=== PATIENT | female | born 2000 | race Asian ===

== ENCOUNTER → 2023-01-24 12:45 | Outpatient (CLI) | payer OTHER, SELFPAY | PROVIDERS: PCP Nurse Practitioner Family; Visit Provider Nurse Practitioner Family | DX: N39.0 Urinary tract infection, site not specified (principal) | CPT/HCPCS: 87086 ==

== ENCOUNTER 2023-01-24 12:56 | Emergency (ER) | payer OTHER, SELFPAY ==
[2023-01-24 13:00] VITALS: BP 111/65; PULSE 115; RESP 18; TEMP 36.7; O2SAT 97; BMI 21.4
[2023-01-24] MEDS: ONDANSETRON 4 MG/2 ML INJ IV (13:23)
[2023-01-24] MEDS: SODIUM CHLORIDE 0.9% 1,000 ML 1000 ML IV ×3 (13:23→16:59)
--- NOTE | 2023-01-24 14:29 | ED_ITS ---
HPI - Nausea/Vomiting/Diarrhea General Chief complaint: Nausea/Vomiting/Diarrhea Stated complaint: food poisoning Time Seen by Provider: 01/24/23 14:20 Source: patient Mode of arrival: Ambulatory History of Present Illness HPI Narrative: Patient here for nausea and vomiting and epigastric discomfort. Patient states symptoms started around 2 or 3:00 a.m. in the morning today. Patient made some [employer] soup as she usually has in the past, never got sick from it before. No known sick contacts no one else ate the soup. Denies . No urinary complaints. No chest pain or back pain. Patient feeling much better after Zofran and normal saline here. Related Data Home Medications Medication Instructions Recorded Confirmed lamotrigine 200 mg tablet 200 mg PO DAILY 01/24/23 01/24/23 Previous Rx's Medication Instructions Recorded ondansetron 4 mg disintegrating 4 mg PO Q8H PRN nausea and 01/24/23 tablet vomiting #10 tabs Allergies Allergy/AdvReac Type Severity Reaction Status Date / Time No Known Drug Allergies Allergy Unverified 01/24/23 12:27 Review of Systems Review of Systems Narrative: GENERAL: negative chills, fatigue, malaise, fever, sweats. HEENT: negative sinus pain, ear pain, sore throat RESPIRATORY: negative dyspnea, cough CARDIOVASCULAR: negative chest pain, palpitations GASTROINTESTINAL: Positive nausea, vomiting, abdominal pain, negative diarrhea : negative dysuria, frequency, hematuria MUSCULOSKELETAL: negative muscle or bony pain SKIN: negative rash, skin lesions NEUROLOGIC: negative weakness, numbness ROS Unobtainable: All systems reviewed & are unremarkable except as noted in HPI and below Patient History Social History Smoking Status: Former smoker Smoking Status: Former smoker alcohol intake frequency: holidays/special occasions only Substance Use Type: marijuana Exam Narrative Exam Narrative: GENERAL: in no distress, not toxic not dyspneic HEAD: Normocephalic. EYES: Pupils equal round ENT: Mucous membranes moist. NECK: Trachea midline. CARDIOVASCULAR: Regular rate and rhythm without murmurs RESPIRATORY: Clear to auscultation. Breath sounds equal bilaterally. No wheezes, rales, or rhonchi. GASTROINTESTINAL: Abdomen soft, non-tender abdomen soft flat nontender no McBurney point tenderness. Negative Griffith sign. No right upper quadrant tenderness. Mild epigastric tenderness EXTREMITIES: No gross deformities. BACK: No flank tenderness. NEURO: AOx4. SKIN: Warm and dry PSYCH: Not anxious, is cooperative Initial Vital Signs Initial Vital Signs: Vital Signs Temperature 98.1 F 01/24/23 13:00 Pulse Rate 115 H 01/24/23 13:00 Respiratory Rate 18 01/24/23 13:00 Blood Pressure 111/65 01/24/23 13:00 Pulse Oximetry 97 01/24/23 13:00 Oxygen Delivery Method Room Air 01/24/23 13:00 Course Orders Ordered: Discontinued Medications Sodium Chloride (Normal Saline 0.9%) 1,000 mls @ 1,000 mls/hr IV BOLUS ONE Stop: 01/24/23 14:18 Last Infusion: 01/24/23 14:10 Dose: 0 mls/hr Documented By: Admin: 01/24/23 13:23 Dose: 1,000 mls/hr Documented By: LY Sodium Chloride (Normal Saline 0.9%) 1,000 mls @ 1,000 mls/hr IV BOLUS ONE Stop: 01/24/23 15:45 Last Infusion: 01/24/23 15:29 Dose: 0 mls/hr Documented By: Admin: 01/24/23 14:52 Dose: 1,000 mls/hr Documented By: KIRILL Sodium Chloride (Normal Saline 0.9%) 1,000 mls @ 1,000 mls/hr IV BOLUS ONE Stop: 01/24/23 17:19 Last Infusion: 01/24/23 18:26 Dose: 0 mls/hr Documented By: Admin: 01/24/23 16:59 Dose: 1,000 mls/hr Documented By: KIRILL Ketorolac Tromethamine (Ketorolac 30 Mg/Ml Vial) 15 mg IV NOW ONE Stop: 01/24/23 17:26 Last Admin: 01/24/23 17:28 Dose: 15 mg Documented By: LY Ondansetron HCl (Ondansetron 4 Mg/2 Ml Inj) 4 mg IV NOW ONE Stop: 01/24/23 13:20 Last Admin: 01/24/23 13:23 Dose: 4 mg Documented By: LY Vital Signs Vital signs: Vital Signs - 8 hr 01/24/23 13:00 01/24/23 15:29 01/24/23 14:30 Temperature 98.1 F Pulse Rate 115 H 110 H 110 H Respiratory Rate 18 14 16 Blood Pressure 111/65 103/59 L 105/60 Pulse Oximetry 97 100 99 Oxygen Delivery Method Room Air Room Air Room Air 01/24/23 15:56 01/24/23 16:57 Temperature Pulse Rate 111 H 117 H Respiratory Rate Blood Pressure 103/58 L 102/52 L Pulse Oximetry 99 99 Oxygen Delivery Method Room Air Room Air MDM - Nausea/Vomiting/Diarrhea Lab Data 01/24/23 13:15 01/24/23 13:15 Labs: Lab Results 01/24/23 01/24/23 01/24/23 Range/Units 13:15 13:15 14:25 WBC 5.9 (4.5-11.0) X10^3/uL RBC 4.49 (4.0-5.2) X10^6/uL Hgb 14.7 (12.0-16.0) g/dL Hct 42.0 (36-46) % MCV 93.4 (80-100) fL MCH 32.6 (26-34) PG MCHC 34.9 (30-36) % RDW 13.3 (11.6-14.8) % Plt Count 170 (150-400) X10^3/uL Neut % (Auto) 92.1 H (50-75) % Lymph % (Auto) 2.1 L (25-40) % [place]berry % (Auto) 4.3 (3-14) % Eos % (Auto) 1.1 L (2-4) % Baso % (Auto) 0.4 (0-2) % Neut # (Auto) 5400 (3109-0891) /uL Lymph # (Auto) 100 L (6287-4612) /uL [place]berry # (Auto) 300 (0-900) /uL Eos # (Auto) 100 (0-450) /uL Baso # (Auto) 0 (0-100) /uL Sodium 138 (137-145) mmol/L Potassium 3.8 (3.4-5.1) mmol/L Chloride 105 (98-107) mmol/L Carbon Dioxide 22 (22-32) mmol/L BUN 12 (7-17) mg/dL Creatinine 0.65 (0.52-1.04) mg/dL Estimated GFR > 60 (>60) mL/min BUN/Creatinine Ratio 18.5 (6-22) Glucose 126 H (70-100) mg/dL Calcium 9.3 (8.4-10.2) mg/dL Total Bilirubin 0.5 (0.2-1.3) mg/dL AST 26 (14-36) IU/L ALT 22 (<35) IU/L Alkaline Phosphatase 62 (38-126) U/L Total Protein 8.3 H (6.3-8.2) g/dL Albumin 4.8 (3.5-5.0) g/dL Globulin 3.5 (1.7-4.1) g/dL Albumin/Globulin Ratio 1.4 (1.0-2.8) Lipase 62 (23-300) U/L Urine RBC 1-5/hpf (0-5/HPF) Urine WBC 0-1/hpf (0-5/HPF) Ur Squamous Epith Cells 1-5 /hpf (0-5/HPF) Urine Bacteria Moderate (10-30) H (None) Ur Culture Indicated? Cult not indicated Urine Dip Bedside Urine Glucose Negative Bedside Urine Bilirubin - Negative Bedside Urine Ketone ++ 40 Urine Specific [place] 1.015 Bedside Urine Occult Blood ++ Bedside Urine pH 6 Bedside Urine Protein +/- 15 Bedside Urine Urobilinogen - Negative Bedside Urine Nitrite - Negative Bedside Urine Leukocytes - Negative Esterase MDM Narrative Medical decision making narrative: Patient here for nausea and vomiting and epigastric discomfort. Patient states symptoms started around 2 or 3:00 a.m. in the morning today. Patient made some [employer] soup as she usually has in the past, never got sick from it before. No known sick contacts no S8 the soup. Denies . No urinary complaints. No chest pain or back pain. Patient feeling much better after Zofran and normal saline here. After history and exam CBC CMP Zofran normal saline urinalysis test MDM CC: Nausea and vomit Complicating co-morbidities: Possible food contamination Data collected from: Patient Medical records reviewed: No recent visit for this complaint Differential considered: Includes but not limited to food contamination, gastritis, pancreatitis, cholecystitis, Exam documented above, pertinent findings include: Mild epigastric tenderness Lab Test results independently reviewed as above. Pertinent findings: Negative urine test negative leukocytes negative nitrate, urine is cloudy 3+ ketones moderate bacteria 2+ leukocyte esterase negative nitrate, culture not indicated WBC 5.9 738 potassium 3.8 bicarb 22 GFR greater than 60 BUN 12 creatinine 0.65 glucose 126 AST 26 ALT 22 Imaging studies independently reviewed: None indicated at this time, no abdominal tenderness. No cough cold or congestion. Laboratory studies are reassuring Consultations: None indicated Treatments: Zofran normal saline, patient received 3 L normal saline. Re-evaluations: 6:00 p.m.. Reviewed results with patient. Patient feels much better. She states she vomited a lot. Heart rate has improved. When resting it is 107. She feels like she can go home and continue hydrating. Zofran nausea medication has been prescribed. Work note provided. Return precautions reviewed with her. Urinalysis reviewed but she has no urinary complaints. No antibiotics indicated at this time. Discussion: Appropriate for discharge home. Exam and laboratory studies otherwise reassuring. No antibiotics indicated at this time. No urinary complaints. Nausea is controlled. Work note provided. Return precautions rev iewed. She desires discharge home, she could have had food poisoning, she was suspicious about the food Diagnosis: Acute nausea and vomiting Discharge Plan Departure Patient Disposition: Home Clinical Impression: Acute vomiting Instructions: DI for Vomiting -- Adult Activity Restrictions/Additional Instructions: Keep well hydrated. Return if worse if any questions or concerns. Return if any abdominal pain fever or any problems urinating. See family doctor in a week for re-evaluation. Call provided primary care referral phone number to establish family doctor. Call [phone]. Prescription for nausea medication has been sent to your pharmacy to [facility]. Work note has been provided for you. Prescriptions: New ondansetron 4 mg tablet,disintegrating 4 mg PO Q8H PRN (Reason: nausea and vomiting) Qty: 10 0RF No Action lamotrigine 200 mg tablet 200 mg PO DAILY Referrals: Josefina Banks ARNP [Primary Care Provider] - Stand Alone Forms: Patient Portal/API, Work Release Note
[2023-01-24 14:30] VITALS: BP 105/60; PULSE 110; RESP 16; O2SAT 99
[2023-01-24 14:54] LABS: Add Manual Diff / Slide Review NO; Basophils Absolute Auto 0 /uL (0-100); Basophils Percent Auto 0.4 % (0-2); Eosinophils Absolute Auto 100 /uL (0-450); Eosinophils Percent Auto 1.1 % (2-4); Hemoglobin 14.7 g/dL (12.0-16.0); Lymphocytes Absolute Auto 100 /uL (1100-4500); Lymphocytes Percent Auto 2.1 % (25-40); Mean Corpuscular HGB Conc 34.9 % (30-36); Mean Corpuscular Hemoglobin 32.6 PG (26-34); Mean Corpuscular Volume 93.4 fL (80-100); Monocytes Absolute Auto 300 /uL (0-900); Monocytes Percent Auto 4.3 % (3-14); Neutrophils Absolute Auto 5400 /uL (1500-7000); Neutrophils Percent Auto 92.1 % (50-75); Platelet Count 170 X10^3/uL (150-400); Red Blood Cell Count 4.49 X10^6/uL (4.0-5.2); Red Cell Distribution Width 13.3 % (11.6-14.8); White Blood Cell Count 5.9 X10^3/uL (4.5-11.0)
[2023-01-24 15:20] LABS: Alanine Aminotransferase 22 IU/L (<35); Albumin 4.8 g/dL (3.5-5.0); Albumin Globulin Ratio 1.4 (1.0-2.8); Alkaline Phosphatase 62 U/L (38-126); Aspartate Aminotransferase 26 IU/L (14-36); BUN Creatinine Ratio 18.5 (6-22); Bilirubin Total 0.5 mg/dL (0.2-1.3); Blood Urea Nitrogen 12 mg/dL (7-17); Calcium 9.3 mg/dL (8.4-10.2); Carbon Dioxide 22 mmol/L (22-32); Chloride 105 mmol/L (98-107); Estimated Glomerular Filt Rate > 60 mL/min (>60); Globulin 3.5 g/dL (1.7-4.1); Glucose 126 mg/dL (70-100); HEMOLYSIS < 15 (0-50); Lipase 62 U/L (23-300); Potassium 3.8 mmol/L (3.4-5.1); Sodium 138 mmol/L (137-145); Total Protein 8.3 g/dL (6.3-8.2)
[2023-01-24 15:21] LABS: Bacteria Urine Moderate (10-30); Culture Indicated Urine Cult Not Indicated; RBC Urine 1-5/HPF (0-5/HPF); Squamous Epithelial Cell Urine 1-5 /HPF (0-5/HPF); WBC Urine 0-1/HPF (0-5/HPF)
[2023-01-24 15:29] VITALS: BP 103/59; PULSE 110; RESP 14; O2SAT 100
[2023-01-24 15:56] VITALS: BP 103/58; PULSE 111; O2SAT 99
[2023-01-24 16:57] VITALS: BP 102/52; PULSE 117; O2SAT 99
[2023-01-24] MEDS: KETOROLAC 30 MG/ML VIAL 15 MG IV (17:28)
[2023-01-24 17:54] VITALS: BP 94/51; PULSE 105; RESP 18; O2SAT 98
== END 2023-01-24 18:28 | disposition home or self-care (01) ==
PROVIDERS: Emergency Provider Emergency Medicine; PCP Nurse Practitioner Family
DX: R11.2 Nausea with vomiting, unspecified (principal); N39.0 Urinary tract infection, site not specified
CPT/HCPCS: 80053; 81003; 81015; 83690; 85025; 87077; 87086; 87186; 96361; 96374; 96375; 99283; 99284; J1885; J2405